=== PATIENT | female | born 1985 | race Caucasian/White ===

== ENCOUNTER 2020-11-28 14:23 | Emergency (ER) | payer OTHER, BC, SELFPAY ==
--- NOTE | ~2020-11-28 | XR_ITS ---
XR elbow RT min 3V 11/28/2020 14:43 Indication: Right elbow pain Procedure: 3 views right elbow Comparison: No prior studies for comparison. Findings: There is a comminuted displaced radial head fracture. There is a loose body overlying the j oint space on the lateral view. There is a large joint effusion. Impression: 1: Displaced, comminuted radial head fracture with possible loose body in the joint space. 2: Large joint effusion. Reviewed, dictated and finalized at location A. SCAPE MANAGEMENT TECHNICIAN Impression: 1: Displaced, comminuted radial head fracture with possible loose body in the j oint space. 2: Large joint effusion.
--- NOTE | 2020-11-28 14:28 | ED.UPPEXIN ---
HPI - Extremity Injury (Upper) General Chief Complaint: Extremity Injury, Upper Stated Complaint: R ELBOW INJURY Time Seen by Provider: 11/28/20 14:28 Source: patient Mode of arrival: ambulatory Limitations: no limitations History of Present Illness HPI narrative: 35-year-old female presents to the urgent care with complaints of right elbow pain. States that she fell landing arms straight out and felt something shift in her elbow. Denies hitting head. No loss of consciousness. No midline tenderness. Full range of motion of her wrist. 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 Neurovascular intact distal to injury. cap refill under 2 sec. Homemade splint and ice applied prior to arrival MD complaint: injury to: right and elbow Other injuries: none Relieving factors: cold therapy and immobilization Related Data Home Medications Medication Instructions Recorded Confirmed [facility] 11/28/20 Xanax 11/28/20 albuterol sulfate [ProAir HFA] INHALATION 11/28/20 folic acid 11/28/20 melatonin 11/28/20 yotgnfjfrfkz-msg-hlgo-[id number]-vit K tablet PO 11/28/20 [Adults Multivitamin] venlafaxine 11/28/20 Allergies Allergy/AdvReac Type Severity Reaction Status Date / Time erythromycin base Allergy Unknown Verified 11/28/20 14:34 [From Erythrocin] latex Allergy Unknown Verified 11/28/20 14:34 Review of Systems Review of Systems: Narrative: CONSTITUTIONAL: Denies fever, chills, or sweats. EYES: Denies visual changes, redness, or discharge. ENT: Denies rhinorrhea, congestion, sore throat, or otalgia. CARDIOVASCULAR: Denies chest pain, palpitations, or edema. RESPIRATORY: Denies cough or dyspnea. GASTROINTESTINAL: Denies abdominal pain, nausea, vomiting, or diarrhea. GENITOURINARY: Denies dysuria or hematuria. SKIN: Denies rash or itching. MUSCULOSKELETAL: Denies back pain. + right elbow pain NEUROLOGIC: Denies headache, numbness, or weakness. PSYCHIATRIC: Denies anxiety or depression. All other systems reviewed are negative, except as documented in HPI. PMFSH Comments At the time of my signature, I reviewed and agree with the nursing past medical, surgical, social, and family history. There is no relevant family history pertinent to the patient complaint. Exam Narrative: Exam Narrative: GENERAL: This is a well-nourished, well-developed patient, in no apparent distress. Obese HEAD: normocephalic, atraumatic. EYES: PERRL. Sclera clear/white. Vision is grossly intact. EARS: External ears normal, auditory canals clear and without drainage. NECK: Neck supple, non-tender without lymphadenopathy, masses or thyromegaly. CARDIOVASCULAR: Regular rate and rhythm without murmurs, gallops, or rubs. RESPIRATORY: Clear to auscultation. Breath sounds equal bilaterally. No wheezes, rales, or rhonchi. GASTROINTESTINAL: Abdomen soft, non-tender, nondistended. Bowel sounds are active. No hepato-splenomegaly, or palpable masses. No guarding. SKIN: warm, intact with no suspicious lesions or rash, good texture and turgor. NEURO: awake, alert, and oriented to person, place and time. There were no obvious focal neurologic abnormalities. EXTREMITIES: No clubbing, cyanosis, or edema. + Right elbow joint tenderness, + effusion right elbow. Tenderness posterior and medial aspect of elbow. Unable to bend right elbow BACK: Nontender without deformity or crepitance. No flank tenderness. No midline tenderness Course Course Emergency Course: [id number] called spoke with Lillian HAM at [facility]. She and Dr in [place] reviewed x-ray. States we should either call Ortho on-call Dr. Ricardo or reach out to a trauma center such as [place] or [facility]. [address] Ricardo's office, closed 1502 called [facility], spoke to Junie DIOR in the emergency room who accepted patient to the ER. Will send POV. Patient is splinted. Post splint. Neurovascular intact. Vital Signs Vital signs: Vital Signs Temperature 97.1 F L 11/28/20 14:30 Pulse Rate 119 H 11/28/20 14:30
[2020-11-28 14:30] VITALS: BP 155/87; PULSE 119; RESP 20; TEMP 36.2; O2SAT 100
== END 2020-11-28 15:15 | disposition short-term general hospital (02) ==
PROVIDERS: Emergency Provider Nurse Practitioner
DX: S52.121A Displaced fracture of head of right radius, initial encounter for closed fracture (principal); W19.XXXA Unspecified fall, initial encounter; M25.421 Effusion, right elbow
CPT/HCPCS: 29105; 73080; 99214; G0463

== ENCOUNTER 2025-01-08 17:06 | Emergency (ER) | payer OTHER, SELFPAY ==
[2025-01-08 17:18] VITALS: BP 161/88; PULSE 95; RESP 16; TEMP 37.2; O2SAT 100
--- NOTE | 2025-01-08 17:32 | ED_ITS ---
HPI - Extremity Problem General Chief complaint: Wound/Laceration Stated complaint: Left Calf Laceration/Left Arm/Hand Tingling Time Seen by Provider: 01/08/25 17:32 Source: patient, RN notes reviewed and old records reviewed Mode of arrival: ambulatory Limitations: no limitations History of Present Illness HPI Narrative: Patient presents with complaints of neck pain that radiates to the left arm. She reports that a week or 2 ago she noticed pain upon awakening, thought that she had slept funny. She has tried multiple ybbn-cnw-alewywi medications, she has tried ice, she has tried heat. She states that heat makes the symptoms better while heat is applied, symptoms immediately repair when she removes the heat source. She denies any numbness or tingling, to strep pain as ?arm day at the gym?. She denies any loss of bowel or bladder control. She denies any injury or trauma. Related Data Allergies Allergy/AdvReac Type Severity Reaction Status Date / Time erythromycin base (From Allergy Unknown Verified 01/08/25 17:20 Erythrocin) latex Allergy Unknown Verified 01/08/25 17:20 Review of Systems Review of Systems: All systems reviewed & are unremarkable except as noted in HPI and below Constitutional: Constitutional: Reports no additional constitutional complaints ENT: Reports system reviewed and no additional complaints, except as documented Cardiovascular: Cardiovascular: Reports no additional cardiovascular complaints Respiratory: Respiratory: Reports no additional respiratory complaints Gastrointestinal: Gastrointestinal: Reports no additional gastrointestinal complaints Musculoskeletal: Musculoskeletal: Reports no additional musculoskeletal complaints, Reports as per HPI, Reports neck pain and Reports radiating pain into limb PMFSH Comments At the time of my signature, I reviewed and agree with the nursing past medical, surgical, social, and family history. There is no relevant family history pertinent to the patient complaint. Exam Const: General: cooperative, no acute distress, alert and awake Orientation/consciousness: oriented to person, oriented to place and oriented to time HENMT: Head: normal to inspection Resp: Effort & Inspection: normal respiratory effort and able to speak in complete sentences Auscultation: clear to auscultation bilaterally, no crackles, no rales, no rhonchi and no wheezes Cardio: Palpation: normal PMI Rate: regular rate Rhythm: regular rhythm Heart sounds: S1 normal heart sound present and S2 normal heart sound present Back/Spine/Pelvis: Cervical Spine: normal cervical lordosis, cervical ROM normal, No cervical spasm and No Cervical spine tenderness Neuro: General: oriented to person, oriented to place and oriented to time Cranial nerves: Yes CN's II-XII intact bilaterally Psych: Appearance: grossly normal Thought process: Normal thought process present Insight: Good insight present (Psych) Judgement: Good judgement present (Psych) Course Course Level of Care: Express Care Visit Vital Signs Vital signs: Vital Signs Temperature 99.0 F 01/08/25 17:18 Pulse Rate 95 01/08/25 17:18 Respiratory Rate 16 01/08/25 17:18 Blood Pressure 161/88 H 01/08/25 17:18 Pulse Oximetry 100 01/08/25 17:18 Oxygen Delivery Room Air 01/08/25 17:18 Temperature 99.0 F 01/08/25 17:18 Pulse Rate 95 01/08/25 17:18 Respiratory Rate 16 01/08/25 17:18 Blood Pressure 161/88 H 01/08/25 17:18 Pulse Oximetry 100 01/08/25 17:18 Oxygen Delivery Room Air 01/08/25 17:18 Reviewed MDM - Extremity (Nontraumatic) MDM Narrative Medical decision making narrative: Reassuring physical exam. Patient without deficits and with normal range of motion. Start steroid burst. Discharge instructions reviewed with patient, as well as provided in writing per nursing staff. The instructions also include specific and strict return/GO TO THE ER as well as f/u information. All questions have been answered, and the patient deny any further questions with discharge and discharge plan. Some parts of this dictation were generated by voice recognition software and may contain typographical and/or grammatical inaccuracies. Differential Diagnosis Differential diagnosis: Likely other (Musculoskeletal pain, arm pain) Discharge Plan Discharge Clinical Impression: Radicular pain Patient Disposition: Home, Self-Care Condition: Stable Instructions: Antibiotic Form, Cervical Radiculopathy (ED) Additional Instructions: Take medications as prescribed. Follow with primary care provider. Emergency department for new or worse symptoms Patient Language: Malian Prescriptions: New prednisone 50 mg tablet 50 mg PO DAILY Qty: 5 0RF Follow-up/Referrals: PHYSICIAN,THERAPY ASSISTANT [Primary Care Provider] - 2 Weeks Time of Disposition: 18:02
== END 2025-01-08 18:08 | disposition home or self-care (01) ==
PROVIDERS: Emergency Provider Nurse Practitioner Family
DX: M54.12 Radiculopathy, cervical region (principal)
CPT/HCPCS: 99213; G0463